=== PATIENT | male | born 1990 | race African-American/Black ===

== ENCOUNTER 2019-02-24 14:57 | Emergency (ER) | payer MEDICAID ==
[~2019-02-24] VITALS: Ht 157.5 cm; Wt 76.0 kg
[2019-02-24 16:42] LABS: BASOPHILS % 0.5 % (0.0-2.0); HEMATOCRIT. 51.8 % (42.0-52.0); HEMOGLOBIN. 17.3 g/dL (14.0-18.0); LYMPHOCYTES % 18.7 % (20.0-50.0); MEAN CORPUSCULAR HEMOGLOBIN 29.8 pg (28.0-32.0); MEAN CORPUSCULAR VOLUME 88.9 fL (80.0-94.0); MEAN PLATELET VOLUME 8.6 fl (7.4-10.4); MONOCYTES % 8.8 % (2.0-8.0); PLATELET 171 x1000/uL (130-400); RED BLOOD CELL COUNT 5.82 mill/uL (4.7-6.1); RED CELL DISTRIBUTION WIDTH 14.2 % (11.6-14.6)
[2019-02-24 16:45] VITALS: BP 133/89
[2019-02-24 16:46] LABS: CHLORIDE 108 mEq/L (98-107)
== END 2019-02-24 18:21 | disposition home or self-care (01) ==
LOC: ER 14:57
DX: J06.9 Acute upper respiratory infection, unspecified (principal); J45.909 Unspecified asthma, uncomplicated; G80.9 Cerebral palsy, unspecified; Z91.040 Latex allergy status; Z88.8 Allergy status to other drugs, medicaments and biological substances; Z88.6 Allergy status to analgesic agent; Z87.01 Personal history of pneumonia (recurrent); Z98.890 Other specified postprocedural states
CPT/HCPCS: 36415; 71045; 99284